=== PATIENT | female | born 1940 | race Caucasian/White ===

== ENCOUNTER 2018-04-06 12:11 | Emergency (ER) | payer MEDICARE, OTHER, SELFPAY ==
[2018-04-06 12:12] VITALS: BP 157/94; PULSE 63; RESP 18; TEMP 36.6; O2SAT 95; BMI 32.0
[2018-04-06 12:22] VITALS: BP 168/90; PULSE 68; RESP 16; O2SAT 97
--- NOTE | 2018-04-06 12:26 | EKG12_ITS ---
Test Reason : ABN LABS Blood Pressure : / mmHG Vent. Rate : 055 BPM Atrial Rate : 055 BPM P-R Int : 204 ms QRS Dur : 088 ms QT Int : 442 ms P-R-T Axes : 033 -14 035 degrees QTc Int : 422 ms Sinus bradycardia Otherwise normal ECG Confirmed by SHASHANK CRAWFORD, DMITRIY ([id number]), senior technical editor GONZÁLEZ RIVERA ([id number]) on 04/10/2018 8:46:44 AM Referred By: SERG Confirmed By:DMITRIY ENCARNACION MD
[2018-04-06 12:46] LABS: Absolute Lymphocyte Count 2.42 X10^3/ul (0.83-4.51); Absolute Neutrophil Count 3.3 X10^3/uL (2.0-7.7); Basophil# 0.02 X10^3/uL; Basophil% 0.3 % (0-1); Eosinophil# 0.08 X10^3/uL; Eosinophils% 1.2 % (0-5); Hematocrit 40.8 % (37-47); Lymphocyte # 2.42 X10^3/ul (4.0); Lymphocyte % 37.8 % (19-41); Mean Corp Hgb Conc 31.9 g/gl (32-36); Mean Corpuscular Hgb 31.3 pg (27.0-32.0); Mean Corpuscular Volume 98.1 fL (81-99); Mean Platelet Vol. 11.3 fl (6.2-12.0); Monocyte# 0.55 X10^3/uL; Monocyte% 8.6 % (0-10); Neutrophil # 3.33 X10^3/uL (2.7-7.7); Neutrophil % 51.9 % (47-70); POSITIVE COUNT NO; POSITIVE DIFFERENTIAL NO; POSITIVE MORPHOLOGY NO; Platelet Count 226 K/mm3 (150-450); RBC Distribution Width CV 13.1 % (11.6-14.6); Red Blood Count 4.16 M/mm3 (4.2-5.4); White Blood Count 6.4 K/mm3 (4.4-11.0)
[2018-04-06 13:01] LABS: Anion Gap 8 (5-15); BUN 21 mg/dL (7-18); BUN/Creat Ratio 23.8 RATIO (10-20); Calcium,Total 8.6 mg/dL (8.5-10.1); Chloride 106 mmol/L (98-107); Creatinine, Serum 0.88 mg/dL (0.55-1.02); EST Glomerular Filtration Rate 66 mL/min (>60); Est Glom Filt Rate - Afr Amer 80 mL/min (>60); Glucose 89 mg/dL (74-106); Potassium 3.8 mmol/L (3.5-5.1); Sodium Level 141 mmol/L (136-145)
[2018-04-06 13:21] VITALS: BP 138/76; PULSE 59; RESP 16
--- NOTE | 2018-04-06 13:27 | ED.DCSUM_ITS ---
- ER Visit Summary Date of Service: 04/06/18 Chief Complaint: Palpitations and low hemoglobin, low iron and elevated TSH History of Present Illness: The patient is a 77 F who had palpitations several days ago while lying in bed. She had no other symptoms i.e. dyspnea, dyspnea on exertion, orthopnea or PND. She denied chest pain, pressure or heaviness. She denied any symptoms in her neck, jaw or shoulders. Review of systems is positive for palpitations and rapid heartbeat. Review of systems is otherwise negative. Past medical history of hypothyroidism Physical Examination: Vital signs noted and blood pressure is elevated 168/90. Vital signs are otherwise normal. Head is atraumatic normocephalic. Pupils are equal round reactive. Extraocular muscles are intact. Conjunctive is pink. TMs are pearly white with landmarks noted. Nares patent with no drainage. Posterior pharynx without erythema or exudate. Uvula is midline. There is no dysphonia or dysphasia. Trachea is midline. There is no stridor with auscultation of the neck. Heart is regular without murmur, gallop or rub. S1 and S2 are normal. Lungs are clear to auscultation with good movement of air bilaterally. Abdomen soft nontender. Neuro exam is nonfocal. DP and PT pulses are 1+. There is no hair noted on the toes. Skin appears normal in color with no rash or lesions. Test Results: H&H is 13.0 and 40.8. Electric panel is normal with a slight elevation in BUN of 21. Troponin less than 0.015. EKG sinus bradycardia rate of 55. EKG is normal other than the fact that the heart rate is less than 60. MO interval, Q christian, QT interval and axis are normal. Emergency Department Course and Treatment: Because patient reported chest palpitations EKG was obtained to determine rhythm, any findings suggestive of preexcitation syndrome and troponin in the event this is atypical cardiac presentation. H&H since she was sent in for reportedly low hemoglobin. Electric panel to assess BUN to creatinine ratio. Labs from physician's office was faxed and BUN was elevated 19 and TSH is 13.9. There is no change in creatinine and the BUN/creatinine ratio is normal. Treatment Plan: Follow-up with PCP as needed Disposition: Discharged home in stable improved condition with daughter Impression: 1. Palpitations unknown etiology 2. Sinus bradycardia documented on EKG 3. History of hypothyroidism This note was generated with [employer] dictation software. It may contain incorrect words, spelling, and punctuation that were not noted in review of the chart prior to signing ED Disposition - Plan for ED Patient: Disposition: Home or Assisted Living Instructions: ED Palpitations Referrals: Tonja Padron [Primary Care Provider] - As Needed
== END 2018-04-06 13:35 | disposition home or self-care (01) ==
PROVIDERS: Emergency Provider Emergency Medicine; Family Provider Family Medicine; PCP Family Medicine
DX: R00.2 Palpitations (principal); R00.1 Bradycardia, unspecified; E03.9 Hypothyroidism, unspecified; Z79.82 Long term (current) use of aspirin; Z79.899 Other long term (current) drug therapy
CPT/HCPCS: 80048; 84484; 85025; 93005; 99284

== ENCOUNTER → 2018-08-23 | Outpatient (CLI) | payer MEDICARE, OTHER, SELFPAY ==
--- NOTE | 2018-08-23 08:01 | RAD_ITS ---
STUDY: X-RAY - PELVIS AND LEFT HIP REASON FOR EXAM: Female, 78 years old. Left hip pain. TECHNIQUE: 3 views of the pelvis and hip. COMPARISON: None. FINDINGS: There is a non-specific bowel gas pattern. Normal visualized soft tissue structures. Prior laminectomy and fusion at the L5-S1 level. Normal bilateral iliac wings, sacroiliac joints and visualized sacrum. Normal bilateral superior and inferior pubic rami. There are degenerative changes of the pubic symphysis with articular narrowing and sclerosis. Normal bilateral ischial tuberosities. Normal visualized femoral head. There is osteoarthritic spur formation of the acetabular rim. There is moderate articular joint space narrowing of the hip. RAD/HIP, UNI W/ Pelvis 2-3 Views IMPRESSION: Moderate degree of degenerative changes of both hip joints. Electronically Signed: Dariusz Maradiaga, at 12:26 EDT , Service support ,
== END | disposition home or self-care (01) ==
LOC: RAD 07:57
PROVIDERS: Family Provider Family Medicine; PCP Family Medicine; Referring Provider Anesthesiology Pain Medicine; Visit Provider Anesthesiology Pain Medicine
DX: M16.12 Unilateral primary osteoarthritis, left hip (principal)
CPT/HCPCS: 73502

== ENCOUNTER → 2019-01-12 | Outpatient (CLI) | payer MEDICARE, OTHER, SELFPAY ==
--- NOTE | 2019-01-12 12:55 | RAD_ITS ---
STUDY: X-RAY - RIGHT KNEE REASON FOR EXAM: Female, 78 years old. Pain, status post fall with sensation of giving out. TECHNIQUE: 4 view(s) of the knee. COMPARISON: None. 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 Alignment at the distal femur and proximal tibia are normal. There is arthrosis of the proximal tibiofibular articulation. Wiring of the subarticular region of the patella noted. Patella is otherwise intact with no distinct fracture. There is trace amount of joint fluid in the suprapatellar region. No acute fracture through the remainder of the distal femur, proximal tibia and fibula. The soft tissue structures are unremarkable. RAD/Knee 4 or More Views IMPRESSION: Total knee prosthesis in place with normal alignment. No acute fracture or bony lesion. Electronically Signed: Lakeisha Lara MD at 0:51 EST , Service support ,
--- NOTE | 2019-01-12 12:55 | RAD_ITS ---
STUDY: X-RAY - LEFT KNEE REASON FOR EXAM: Female, 78 years old. Pain off and on with one of the knees giving out leading to fall. TECHNIQUE: 4 view(s) of the knee. COMPARISON: None. FINDINGS: There is a total knee prosthesis through the distal femur and proximal tibia. There is wiring of the posterior articular region of the patella. Patella is otherwise intact Remainder of the distal femur, proximal tibia and fibula are normal. No lucency to suggest acute fracture. There is trace amount of joint effusion. The soft tissue structures are unremarkable. RAD/Knee 4 or More Views IMPRESSION: The bony processes in place with normal alignment. No acute fracture. Electronically Signed: Lakeisha Lara MD at 0:52 EST , Service support ,
== END | disposition home or self-care (01) ==
LOC: RAD.FUTURE 12:50
PROVIDERS: Family Provider Family Medicine; PCP Family Medicine; Referring Provider Anesthesiology Pain Medicine; Visit Provider Anesthesiology Pain Medicine
DX: M17.11 Unilateral primary osteoarthritis, right knee (principal); M17.12 Unilateral primary osteoarthritis, left knee
CPT/HCPCS: 73564

== ENCOUNTER → 2024-07-08 | Outpatient (CLI) | payer MEDICARE, OTHER, SELFPAY ==
--- NOTE | 2024-07-08 11:42 | RAD_ITS ---
PROCEDURE: L/S SPINE COMP/W BENDING VIEWS 07/08/2024 REASON FOR EXAM: RADICULOPATHY, LUMBOSACRAL REGION TECHNIQUE: 7 views; AP, bilateral oblique, 2 lateral, flexion and extension, coned-down L5- S1, a total images COMPARISON: None available FINDINGS: For nomenclature purposes there are only 4 non rib-bearing lumbar vertebral type bodies identified. Status post posterior fusion and laminectomy L4-S1. Multilevel spondylosis/discogenic change with multilevel [id number] appearing disc space narrowing and areas of vacuum effect noted. Degenerative endplate changes and anterior osteophyte formation. No definite fracture or malalignment identified. Aortoiliac atherosclerotic calcification. On the flexion view a 7 to 8 mm retrolisthesis of L2 on L3 develops which is not present on the extension view. RAD/L/S Spine Comp/w Bending Views IMPRESSION: For nomenclature purposes there are only 4 non rib-bearing lumbar vertebral typ e bodies identified. Status post posterior fusion and laminectomy L4-S1. Multilevel spondylosis/discogenic change. On the flexion view a 7 to 8 mm retrolisthesis of L2 on L3 develops which is no t present on the extension view. Reading Location: [id number]
--- NOTE | 2024-07-08 11:42 | RAD_ITS ---
PROCEDURE: HIPS B/L MIN 2 VIEWS W/ PELVIS 07/08/2024 REASON FOR EXAM: UNILATERAL PRIMARY OSTEOARTHRITIS, LEFT HIP TECHNIQUE: AP pelvis and two views of the right and two views of the left hip, 5 total images COMPARISON: 08/23/2018 FINDINGS: Lower lumbar hardware. Lower lumbar spondylosis/discogenic change. Symmetric appearing SI joints appear within limits. Mild sclerotic changes of the pubic symphysis without joint widening. No fracture or dislocation. Mild appearing bilateral hip osteoarthrosis. RAD/Hips B/L min 2 views w/ Pelvis IMPRESSION: Mild appearing bilateral hip osteoarthrosis. Reading Location: [id number]
== END | disposition home or self-care (01) ==
LOC: RAD 11:38
PROVIDERS: PCP Family Medicine; Referring Provider Anesthesiology Pain Medicine; Visit Provider Anesthesiology Pain Medicine
DX: M54.17 Radiculopathy, lumbosacral region (principal); M16.12 Unilateral primary osteoarthritis, left hip
CPT/HCPCS: 72114; 73521